=== PATIENT | male | born 1995 | race Caucasian/White ===

== ENCOUNTER 2016-08-20 20:00 | Emergency (ER) | payer BC ==
[~2016-08-20] VITALS: Ht 177.8 cm; Wt 81.0 kg
[2016-08-20 20:07] VITALS: TEMP 36.9; Ht 177.8 cm; Wt 81.0 kg
[2016-08-20] MEDS ORDERED: CNC/54 PO (20:26)
[2016-08-20] MEDS ORDERED: OPTIRAY 320 IV PRN (20:30)
[2016-08-20 20:56] LABS: BASO % 0.5 %; BASO ABS # 0.04 K/uL (0-0.2); COMPLETE YES; EOS % 3.1 %; HEMATOCRIT 43.3 % (42-52); IG% 0.2 %; LYMPH % 21.7 %; LYMPH ABS # 1.81 K/uL (1.2-3.4); MEAN CELL VOLUME 85.4 fL (80-100); MEAN CORPUSCULAR HEMOGLOBIN 30.8 pg (25-34); MEAN PLATELET VOLUME 11.6 fL (7.4-10.4); NEUT % 63.5 %; PLATELET COUNT 174 K/uL (130-400); RED BLOOD COUNT 5.07 M/uL (4.7-6.1); WHITE BLOOD COUNT 8.36 K/uL (4.8-10.8)
[2016-08-20 21:11] LABS: MANUAL MICROSCOPIC REQUIRED? NO; REVIEW REQ? NO; URINE APPEARANCE CLEAR (CLEAR); URINE BILIRUBIN NEG (NEG); URINE COLOR YELLOW; URINE NITRITE NEG (NEG); URINE PH 7.5 (4.5-7.5); URINE SPECIFIC GRAVITY 1.022 (1.000-1.030); UROBILINOGEN NEG (NEG)
[2016-08-20 21:26] LABS: BUN/CREATININE RATIO 7.6 (10-20); POTASSIUM 3.8 mmol/L (3.5-5.1)
[2016-08-20 21:58] LABS: CALCIUM 9.4 mg/dl (8.5-10.1)
--- NOTE | 2016-08-20 23:00 | DIAGNOSTIC IMAGING REPORT ---
CT ABD/PELVIS IV AND ORAL CONT CLINICAL HISTORY: Right-sided abdominal pain COMPARISON STUDY: None. TECHNIQUE: Following the IV administration of 91 mL of Optiray-320, CT scan of the abdomen and pelvis was performed from the lung bases to the proximal femurs. Images are reviewed in the axial, sagittal, and coronal planes. IV contrast was administered without complication. CT DOSE: 334.64 mGy.cm FINDINGS: Lower chest: There are minor basilar atelectatic changes. Liver: The contrast-enhanced liver is normal in size, contour, and attenuation. There is no intrahepatic biliary ductal dilatation. The hepatic veins and portal veins are patent. Gallbladder: Unremarkable. Spleen: Normal in size and attenuation. Pancreas: Unremarkable. Adrenal glands: Unremarkable. Kidneys: There is symmetric renal cortical enhancement. The kidneys are normal in size without hydronephrosis. Bowel: There are no transition zones indicate bowel obstruction. There is no evidence of acute appendicitis. Peritoneum: There is no intraperitoneal free air or abdominal ascites. Vasculature: The abdominal aorta is normal in course and caliber. Adenopathy: None. Pelvic viscera: The bladder, and pelvic viscera are unremarkable. Skeletal structures: No destructive osseous lesions are seen. IMPRESSION: 1. No acute intra-abdominal or pelvic findings 2. No evidence of bowel obstruction. No evidence of free air 3. No evidence of acute appendicitis. No evidence of acute diverticulitis. Electronically signed by: Isai Lynch M.D. 08/20/2016 10:57 PM Dictated Date/Time: 08/20/2016 10:53 PM
[2016-08-20 23:28] VITALS: BP 125/76; PULSE 60; O2SAT 97
--- NOTE | 2016-08-20 23:52 | EMERGENCY ROOM VISIT NOTE ---
History Report prepared by Son: Raine Rizvi Under the Supervision of: Dr. Dennis Jaquez M.D. First contact with patient: 20:12 Chief Complaint: ABDOMINAL PAIN Stated Complaint: SHARP AB CRAMPS History of Present Illness The patient is a 21 year old male who presents to the Emergency Room with complaints of intermittent right sided abdominal pain for the past 2 weeks. He was evaluated at [facility] 2 weeks ago and he was told that he had hepatitis due to elevated liver function tests. His viral hepatitis panel was negative so they felt that the patient most likely had hepatitis e. The patient states that he returned to [facility] last week and they informed him that his hepatitis had cleared up; although, he might still experience some symptoms over the next month. The patient states that the majority of his pain is in the RLQ, and he has diffuse spasming pains throughout his abdomen intermittently. He rates his current pain as a 2/10 in severity. He states that the elastic waistband of his pants exacerbates his pain. He is also experiencing nausea. The patient denies fever, vomiting, diarrhea, urinary symptoms, and testicular swelling. He did have some testicular pain 2 weeks ago that he states has completely resolved. Source of History: patient Onset: 2 weeks ago Position: abdomen (right-sided) Symptom Intensity: 2/10 Quality: other (spasming) Timing: intermittent Modifying Factors (Worsening): other (tight waistband) Associated Symptoms: + nausea, No diarrhea, No fevers, No urinary symptoms, No vomiting Review of Systems See HPI for pertinent positives & negatives. A total of 10 systems reviewed and were otherwise negative. Past Medical & Surgical Medical Problems: (1) No significant active problems Family History No pertinent history stated. Social History Smoking Status: Never Smoker Marital Status: single Housing Status: lives with roommate Occupation Status: [employer] student Current/Historical Medications Scheduled Methylphenidate Hcl (Concerta), 54 MG PO QAM Allergies Coded Allergies: No Known Allergies (Unverified , 08/20/16) Physical Exam Vital Signs Date Time Temp Pulse Resp B/P Pulse Ox O2 Delivery O2 Flow Rate FiO2 08/20/16 23:28 60 18 125/76 97 08/20/16 22:40 67 14 135/83 96 Room Air 08/20/16 21:18 62 18 145/80 98 Room Air 08/20/16 20:07 36.9 86 16 158/78 95 Room Air Physical Exam Constitutional: Vital signs reviewed. Eyes: Pupils are equal round reactive to light. Conjunctiva are noninjected. ENT: Pharynx is clear without erythema or exudate. Mucous membranes are moist. Neck supple without meningeal signs. Respiratory: Clear to auscultation bilaterally. Breath sounds are equal bilaterally. Cardiovascular: Regular rate and rhythm. No rubs or gallops. GI: Soft, nondistended. Right mid and lower abdominal tenderness. Bowel sounds are present. Musculoskeletal: No peripheral edema. No lower extremity tenderness. Integumentary: No cyanosis or jaundice. Neurological: The patient is awake and alert. No focal deficits. Psychiatric: Normal affect. Medical Decision & Procedures ER Provider Diagnostic Interpretation: Radiology results as stated below per my review and the radiologist's interpretation: CT ABD/PELVIS IV AND ORAL CONT CLINICAL HISTORY: Right-sided abdominal pain COMPARISON STUDY: None. TECHNIQUE: Following the IV administration of 91 mL of Optiray-320, CT scan of the abdomen and pelvis was performed from the lung bases to the proximal femurs. Images are reviewed in the axial, sagittal, and coronal planes. IV contrast was administered without complication. CT DOSE: 334.64 mGy.cm FINDINGS: Lower chest: There are minor basilar atelectatic changes. Liver: The contrast-enhanced liver is normal in size, contour, and attenuation. There is no intrahepatic biliary ductal dilatation. The hepatic veins and portal veins are patent. Gallbladder: Unremarkable. Spleen: Normal in size and attenuation. Pancreas: Unremarkable. Adrenal glands: Unremarkable. Kidneys: There is symmetric renal cortical enhancement. The kidneys are normal in size without hydronephrosis. Bowel: There are no transition zones indicate bowel obstruction. There is no evidence of acute appendicitis. Peritoneum: There is no intraperitoneal free air or abdominal ascites. Vasculature: The abdominal aorta is normal in course and caliber. Adenopathy: None. Pelvic viscera: The bladder, and pelvic viscera are unremarkable. Skeletal structures: No destructive osseous lesions are seen. IMPRESSION: 1. No acute intra-abdominal or pelvic findings 2. No evidence of bowel obstruction. No evidence of free air 3. No evidence of acute appendicitis. No evidence of acute diverticulitis. Electronically signed by: Isai Lynch M.D. 08/20/2016 10:57 PM Dictated Date/Time: 08/20/2016 10:53 PM Laboratory Results 08/20/16 20:36 Red Blood Count 5.07, Mean Corpuscular Volume 85.4, Mean Corpuscular Hemoglobin 30.8, Mean Corpuscular Hemoglobin Concent 36.0, Mean Platelet Volume 11.6, Neutrophils (%) (Auto) 63.5, Lymphocytes (%) (Auto) 21.7, Monocytes (%) (Auto) 11.0, Eosinophils (%) (Auto) 3.1, Basophils (%) (Auto) 0.5, Neutrophils # (Auto ) 5.31, Lymphocytes # (Auto) 1.81, Monocytes # (Auto) 0.92, Eosinophils # (Auto ) 0.26, Basophils # (Auto) 0.04 08/20/16 20:36 Test 08/20/16 20:36 08/20/16 20:45 White Blood Count 8.36 K/uL (4.8-10.8) Red Blood Count 5.07 M/uL (4.7-6.1) Hemoglobin 15.6 g/dL (14.0-18.0) Hematocrit 43.3 % (42-52) Mean Corpuscular Volume 85.4 fL (80-100) Mean Corpuscular Hemoglobin 30.8 pg (25-34) Mean Corpuscular Hemoglobin Concent 36.0 g/dl (32-36) Platelet Count 174 K/uL (130-400) Mean Platelet Volume 11.6 fL (7.4-10.4) Neutrophils (%) (Auto) 63.5 % Lymphocytes (%) (Auto) 21.7 % Monocytes (%) (Auto) 11.0 % Eosinophils (%) (Auto) 3.1 % Basophils (%) (Auto) 0.5 % Neutrophils # (Auto) 5.31 K/uL (1.4-6.5) Lymphocytes # (Auto) 1.81 K/uL (1.2-3.4) Monocytes # (Auto) 0.92 K/uL (0.11-0.59) Eosinophils # (Auto) 0.26 K/uL (0-0.5) Basophils # (Auto) 0.04 K/uL (0-0.2) RDW Standard Deviation 40.6 fL (36.4-46.3) RDW Coefficient of Variation 13.0 % (11.5-14.5) Immature Granulocyte % (Auto) 0.2 % Immature Granulocyte # (Auto) 0.02 K/uL (0.00-0.02) Anion Gap 7.0 mmol/L (3-11) Est Creatinine Clear Calc Drug Dose 120.7 ml/min Estimated GFR () 124.1 Estimated GFR (Non- 107.1 BUN/Creatinine Ratio 7.6 (10-20) Calcium Level 9.4 mg/dl (8.5-10.1) Total Bilirubin 0.8 mg/dl (0.2-1) Direct Bilirubin 0.1 mg/dl (0-0.2) Aspartate Amino Transf (AST/SGOT) 29 U/L (15-37) Alanine Aminotransferase (ALT/SGPT) 48 U/L (12-78) Alkaline Phosphatase 69 U/L (45-117) Total Protein 7.3 gm/dl (6.4-8.2) Albumin 4.2 gm/dl (3.4-5.0) Lipase 110 U/L (73-393) Urine Color YELLOW Urine Appearance CLEAR (CLEAR) Urine pH 7.5 (4.5-7.5) Urine Specific [place] 1.022 (1.000-1.030) Urine Protein NEG (NEG) Urine Glucose (UA) NEG (NEG) Urine Ketones NEG (NEG) Urine Occult Blood NEG (NEG) Urine Nitrite NEG (NEG) Urine Bilirubin NEG (NEG) Urine Urobilinogen NEG (NEG) Urine Leukocyte Esterase NEG (NEG) Laboratory results as reviewed by me. ED Course 2012: The patient was evaluated in room B10. A complete history and physical exam was performed. 2214: I updated the patient at this time. He is waiting for his CT scan. 2321: I reassessed the patient at this time. He is feeling better and resting comfortably. I discussed the results and treatment plan with the patient. I answered all pertaining questions that he had. He expressed understanding and verbalized agreement. The patient will be discharged home. Medical Decision This is a 21-year-old male who presents with right-sided abdominal pain and a history of elevated LFTs. Differential diagnosis includes inflammatory bowel disease, ileitis, appendicitis, mass, cholelithiasis, pancreatitis. I did perform a limited focused review of portions of the patient's old chart on the electronic medical record. The patient has had no prior visits to this hospital. I did evaluate the patient as noted above. IV access was established. I did order and personally review the patient's UA as described above. I did order and review the patient's blood work as noted in the electronic medical record. LFTs are unremarkable. His WBC count is not elevated. I did order a CT of the abdomen and pelvis. I did review the images myself as well as the radiology report as described above. There is no evidence of of acute pathology. I did discuss the test results with the patient. I did recommend follow up with his doctor or gastroenterology. He was referred to Dr. Scott. He was discharged in good condition. Impression Primary Impression: Right sided abdominal pain Scribe Attestation The scribe's documentation has been prepared under my direct and personally reviewed by me in its entirety. I confirm that the note above accurately reflects all work, treatment, procedures, and medical decision making performed by me. Departure Information Dispostion Home / Self-Care Referrals Tye Scott M.D. [facility] Forms HOME CARE DOCUMENTATION FORM, IMPORTANT VISIT INFORMATION Patient Instructions ED Abd Pain Unkn Cause Male, My [facility] Additional Instructions You have been examined and treated today on an emergency basis only. This is not a substitute for, or an effort to provide, complete comprehensive medical care. It is impossible to recognize and treat all injuries or illnesses in a single emergency department visit. It is therefore important that you follow up closely with your physician or Dr. Scott of gastroenterology. Call as soon as possible for an appointment. Return for worsening symptoms or if you develop fever, vomiting, or any other concerning symptoms.
== END 2016-08-20 23:28 | disposition home or self-care (01) ==
LOC: C.EDB 20:03
DX: R10.9 Unspecified abdominal pain (principal); Z79.899 Other long term (current) drug therapy